=== PATIENT | female | born 1980 | race Caucasian/White ===

== ENCOUNTER 2017-09-23 19:39 | Emergency (ER) | payer SELFPAY ==
[~2017-09-23] VITALS: Ht 160 cm; Wt 95.3 kg
[~2017-09-23 19:39] MED LIST: AUGMENTIN 875 M1 TAB PO; BACTRIM DS 8001 TA1 PO; CLARITIN10 MG PO; COMBIVENT1 ARO IH; GAS RELIEF20 MG/0.3 PO; KEFLEX500 MG PO; MEDROL DOSEPAK4 MG PO; MOTRIN800 MG PO; ZITHROMAX Z PA250 MG PO
[2017-09-23] MEDS ORDERED: OMNICEF300 MG PO (20:03)
== END 2017-09-23 20:07 | disposition home or self-care (01) ==
LOC: ED 19:39
DX: H66.92 Otitis media, unspecified, left ear (principal); H60.502 Unspecified acute noninfective otitis externa, left ear; R03.0 Elevated blood-pressure reading, without diagnosis of hypertension; F17.200 Nicotine dependence, unspecified, uncomplicated

== ENCOUNTER → 2024-11-25 | Emergency (ER) | payer BC ==
[~2024-11-25] VITALS: Ht 160 cm; Wt 99.8 kg
[~2024-11-25] MED LIST changes: +AVPAK AZITHROM250 M1 PO; +Albuterol Sulfate 2.5 MG/3 ML VIAL NEB ONE; +HYDR25T PO; +LISINOPRIL20 MG PO; +MOUNJARO7.5 MG/0.1 SQ; +OMNICEF300 MG PO; +VENT7GM INH
== END ==
LOC: ED 10:35
DX: J40 Bronchitis, not specified as acute or chronic (principal); Z20.822 Contact with and (suspected) exposure to COVID-19; Z79.899 Other long term (current) drug therapy